=== PATIENT | male | born 1940 | race Caucasian/White ===

== ENCOUNTER → 2019-12-01 14:17 | Outpatient (BNVA) | payer MEDICARE, BC, OTHER, SELFPAY | PROVIDERS: Family Provider Family Medicine; PCP Family Medicine; Visit Provider Internal Medicine Rheumatology | DX: M15.0 Primary generalized (osteo)arthritis (principal); M79.671 Pain in right foot; Z96.659 Presence of unspecified artificial knee joint; M19.011 Primary osteoarthritis, right shoulder; M25.511 Pain in right shoulder; R60.0 Localized edema | CPT/HCPCS: 73000; 73630; 99204 ==

== ENCOUNTER 2019-12-01 15:05 | Outpatient (CLI) | payer MEDICARE, OTHER, SELFPAY ==
--- NOTE | 2019-12-01 15:16 | XR_ITS ---
WS: [id number] FOOT RIGHT TECHNIQUE: 3 views of the right foot CLINICAL INFORMATION: right foot pain COMPARISON: None. FINDINGS: Osteopenia. IP joint narrowing with hammertoe deformities. Normal metatarsals. A few erosions in the metatarsal heads. No acute fractures. Mild soft tissue edema. Normal TMT joints. Vascular calcificati on. Tiny plantar calcaneal spur. XR/XR foot RT min 3V* [id number] IMPRESSION: 1. IP joint narrowing hammertoe deformities. 2. A few erosions the metatarsal heads. 3. Mild soft tissue edema.
--- NOTE | 2019-12-01 15:16 | XR_ITS ---
WS: [id number] RIGHT CLAVICLE TECHNIQUE: 2 views of the right clavicle. CLINICAL INFORMATION: sternoclavicular pain COMPARISON: None. 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 Partially visualized sternoto my. Distal clavicle appears normal. No acute fractures. XR/[place] [id number] IMPRESSION: 1. 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 2. No clavicular fractures.
== END 2019-12-01 15:06 | disposition home or self-care (01) ==
LOC: RADWPI 15:15
PROVIDERS: Family Provider Family Medicine; PCP Family Medicine; Visit Provider Internal Medicine Rheumatology
DX: M19.011 Primary osteoarthritis, right shoulder (principal); M79.671 Pain in right foot; M25.511 Pain in right shoulder; R60.0 Localized edema
CPT/HCPCS: 73000; 73630

== ENCOUNTER → 2020-04-12 10:17 | Outpatient (BNVA) | payer MEDICARE, BC, OTHER, SELFPAY | PROVIDERS: Family Provider Family Medicine; PCP Family Medicine; Visit Provider Internal Medicine Rheumatology | DX: Z79.899 Other long term (current) drug therapy (principal) | CPT/HCPCS: 36415; 80076; 82565; 85025; 85651; 86140 ==

== ENCOUNTER → 2023-01-16 14:26 | Outpatient (BNVA) | payer MEDICARE, SELFPAY | PROVIDERS: Family Provider Family Medicine; PCP Family Medicine; Visit Provider Podiatrist Foot & Ankle Surgery | DX: M19.071 Primary osteoarthritis, right ankle and foot (principal); M21.6X1 Other acquired deformities of right foot; M21.6X2 Other acquired deformities of left foot | CPT/HCPCS: 73630; 99203 ==

== ENCOUNTER → 2023-02-23 09:28 | Outpatient (BNVA) | payer MEDICARE, SELFPAY | PROVIDERS: Family Provider Family Medicine; PCP Family Medicine; Visit Provider Podiatrist Foot & Ankle Surgery | DX: M19.072 Primary osteoarthritis, left ankle and foot (principal); M19.071 Primary osteoarthritis, right ankle and foot; M21.6X1 Other acquired deformities of right foot; M21.6X2 Other acquired deformities of left foot | CPT/HCPCS: 99213 ==